=== PATIENT | male | born 1980 ===

== ENCOUNTER 2018-06-05 09:15 | Observation (INO) | payer OTHER ==
--- NOTE | 2018-06-05 10:04 | C.PDOC ---
History Of Present Illness 38 y/o male presents to ED with c/o dizziness since 6am today associated with nausea and vomiting. Patient reports symptoms worse with movement and admits to mild headache. Patient denies fever, chills, chest pain, sob or any other c omplaints at this time. Time Seen by Provider: 06/05/18 09:37 Chief Complaint (Nursing): Dizziness/Lightheaded History Per: Patient History/Exam Limitations: no limitations Onset/Duration Of Symptoms: Days Current Symptoms Are (Timing): Still Present Past Medical History Reviewed: Historical Data, Nursing Documentation, Vital Signs Vital Signs: Last Vital Signs Temp 97.6 F 06/05/18 13:15 Pulse 66 06/05/18 13:15 Resp 18 06/05/18 13:15 BP 98/66 L 06/05/18 13:15 Pulse Ox 98 06/05/18 13:15 - Medical History PMH: No Chronic Diseases Surgical History: No Surg Hx Family History: States: No Known Family Hx - Social History Hx Alcohol Use: No Hx Substance Use: No - Immunization History Hx Tetanus Toxoid Vaccination: No Hx Influenza Vaccination: No Hx Pneumococcal Vaccination: No Review Of Systems Except As Marked, All Systems Reviewed And Found Negative. Gastrointestinal: Positive for: Nausea, Vomiting Neurological: Positive for: Headache, Dizziness Physical Exam - Physical Exam Appears: Non-toxic, No Acute Distress Skin: Warm, Dry, No Rash Head: Atraumatic, Normacephalic Eye(s): bilateral: Normal Inspection (No nystagmus) Oral Mucosa: Moist Neck: Supple Cardiovascular: Rhythm Regular Respiratory: Normal Breath Sounds, No Rales, No Rhonchi, No Wheezing Gastrointestinal/Abdominal: Soft, No Tenderness, No Guarding, No Rebound Neurological/Psych: Oriented x3, Normal Speech, Normal Cognition ED Course And Treatment - Laboratory Results Result Diagrams: 06/05/18 10:32 06/05/18 10:32 O2 Sat by Pulse Oximetry: 100 (RA) Pulse Ox Interpretation: Normal Medical Decision Making Medical Decision Making: Assessment: Vertigo Disposition Discussed With : Teddy Mcclendon Doctor Will See Patient In The: Hospital Counseled Patient/Family Regarding: Studies Performed, Diagnosis - Disposition Disposition: HOSPITALIZED Disposition Time: 15:35 Condition: FAIR Forms: [employer] ([place]ian) - Clinical Impression Clinical Impression: Dizziness - Scribe Statement The provider has reviewed the documentation as recorded by the Scribe Maricsa Zhao All medical record entries made by the Margie were at my direction and personally dictated by me. I have reviewed the chart and agree that the record accurately reflects my personal performance of the history, physical exam, medical decision making, and the department course for this patient. I have also personally directed, reviewed, and agree with the discharge instructions and disposition.
[2018-06-05] MEDS ORDERED: Sodium Chloride 0.9% 1,000 ML IV ONE (10:16)
[2018-06-05 10:35] LABS: BASO % 0.6 % (0.0-2.0); EOS # 0.2 K/uL (0.0-0.7); EOS % 2.5 % (0.0-4.0); HEMOGLOBIN 14.5 g/dL (12.0-18.0); LYMPH # 2.6 K/uL (1.0-4.3); LYMPH % 33.1 % (20.0-40.0); MEAN CELL VOLUME 85.3 fL (80.0-94.0); MEAN CORPUSCULAR HEMOGLOBIN 29.9 pg (27.0-31.0); MEAN PLATELET VOLUME 8.5 fL (7.2-11.7); MONO # 0.5 K/uL (0.0-0.8); MONO % 5.7 % (0.0-10.0); NEUT # 4.6 K/uL (1.8-7.0); NEUT % 58.1 % (50.0-75.0); NRBC % 0.1 % (0.0-2.0); RBC 4.84 Mil/uL (4.40-5.90); RED CELL DISTRIBUTION WIDTH 13.9 % (11.5-14.5)
[2018-06-05] MEDS ORDERED: Sodium Chloride 0.9% 250 ML IV ONE (10:53)
[2018-06-05 10:55] LABS: ALB/GLOB RATIO 1.3 (1.0-2.1); ALBUMIN 4.5 g/dL (3.5-5.0); ALT/SGPT 41 U/L (21-72); AST/SGOT 28 U/L (17-59); BLOOD UREA NITROGEN 16 mg/dL (9-20); CALCIUM 9.8 mg/dl (8.6-10.4); GFR NON-AFRICAN AMERICAN > 60
--- NOTE | 2018-06-05 11:16 | CT ---
Date of service: 06/05/2018 PROCEDURE: CT HEAD WITHOUT CONTRAST. HISTORY: dizziness COMPARISON: None available. TECHNIQUE: Axial computed tomography images were obtained through the head/brain without intravenous contrast. Radiation dose: Total exam DLP = 1207.03 mGy-cm. This CT exam was performed using one or more of the following dose reduction techniques: Automated exposure control, adjustment of the mA and/or kV according to patient size, and/or use of iterative reconstruction technique. FINDINGS: HEMORRHAGE: No intracranial hemorrhage. BRAIN: Normal olivo-white matter differentiation and density are appreciated throughout the cerebrum and cerebellum with the brainstem appearing unremarkable as well. There is no mass effect. There is no suspicious extra-axial fluid collection and the midline brain anatomy appears diffusely unremarkable. VENTRICLES: Unremarkable. No hydrocephalus. CALVARIUM: Unremarkable. PARANASAL SINUSES: Unremarkable as visualized. No significant inflammatory changes. MASTOID AIR CELLS: Unremarkable as visualized. No inflammatory changes. OTHER FINDINGS: None. IMPRESSION: Unremarkable noncontrast head CT. Follow-up CT or MRI are available if clinically warranted.
--- NOTE | 2018-06-05 11:21 | RAD ---
Date of service: 06/05/2018 PROCEDURE: CHEST RADIOGRAPH, 1 VIEW HISTORY: chest pain COMPARISON: None available. FINDINGS: LUNGS: Clear. PLEURA: No pneumothorax or pleural fluid seen. CARDIOVASCULAR: Normal. OSSEOUS STRUCTURES: No significant abnormalities. VISUALIZED UPPER ABDOMEN: Normal. OTHER FINDINGS: None. IMPRESSION: No active disease.
[2018-06-05 15:20] LABS: URINE AMORPHOUS SEDIMENT MODERATE /ul (<OCC); URINE BACTERIA RARE (<OCC); URINE BILIRUBIN NEGATIVE (NEGATIVE); URINE BLOOD NEGATIVE (NEGATIVE); URINE CLARITY Hazy (Clear); URINE COLOR Yellow (YELLOW); URINE GLUCOSE (UA) NORMAL (Normal); URINE LEUKOCYTE ESTERASE NEG Leu/uL (Negative); URINE PROTEIN NEGATIVE (NEGATIVE); URINE UROBILINOGEN NORMAL mg/dL (0.2-1.0)
--- NOTE | 2018-06-06 10:48 | CP.PCM.CON ---
History of Present Illness - History of Present Illness History of Present Illness: Neurology Consult Note: Dr. Mosher's Service 38 year old male with a past medical history of hypercholesterolemia comes into the hospital after reporting dizziness that began yesterday. The patient reports that while sleeping he began to feel the sensation of the room spinning. He woke up from his sleep and the dizziness persisted. The patient went to work with no issue, however while in the restroom the patient began having the s ymptoms again and had to brace himself against the stall. He denies having any episodes in the past. He denies any fevers, chills, recent illness, headaches, changes in vision, or any other complaints. Neurology was consulted for intractable dizziness. PMD:Located at his job. Doesn't recall the name Medical history: Hypercholesterolemia Medications: One for hypercholesterolemia. Unsure of the name. Allergies: Denies Surgical history: Tonsillectomy Social history: Denies illicit drugs. Review of Systems - Constitutional Constitutional: absent: Chills, Frequent Falls, Headache, Night Sweats, Weakness - EENT Eyes: absent: Blurred Vision, Discharge, Loss of Peripheral Vision, Sees Flas hes, Loss of Vision Ears: Dizziness. absent: Ear Discharge, Disequilibrium, Other Nose/Mouth/Throat: absent: Nasal Congestion, Nose Pain, Bleeding Gums, Dysphagia, Mouth Pain, Facial Pain - Cardiovascular Cardiovascular: absent: Chest Pain, Claudication, Irregular Heart Rhythm, Leg Edema, Palpitations, Pedal Edema - Respiratory Respiratory: absent: Hemoptysis, Pain on Inspiration, Change in Mucous Color - Gastrointestinal Gastrointestinal: Vomiting. absent: Belching, Change in Stool Character, Diarrhea, Dyspepsia, Fecal Incontinence, Heartburn, Melena, Nausea - Musculoskeletal Musculoskeletal: absent: Arthralgias, Atrophy, Limited Range of Motion, Myalgias, Tingling - Integumentary Integumentary: absent: Bleeding Lesions, Lesions, Photosensitivity, Striae, Swelling - Neurological Neurological: Vertigo. absent: Focal Weakness, Tremor, Weakness - Psychiatric Psychiatric: absent: Anhedonia, Behavioral Changes - Endocrine Endocrine: absent: Polydipsia, Polyphagia, Polyuria - Hematologic/Lymphatic Hematologic: absent: Easy Bleeding, Easy Bruising Past Patient History - Infectious Disease Hx of Infectious Diseases: None - Past Social History Smoking Status: Never Smoked - PSYCHIATRIC Hx Substance Use: No - ANESTHESIA Hx Anesthesia: No Meds Allergies/Adverse Reactions: Allergies Allergy/AdvReac Type Severity Reaction Status Date / Time No Known Allergies Allergy Verified 06/05/18 09:36 - Medications Medications: Current Medications Meclizine HCl (Antivert) 25 mg PO Q6 MINNIE Last Admin: 06/06/18 05:46 Dose: 25 mg Physical Exam - Head Exam Head Exam: ATRAUMATIC, NORMAL INSPECTION, NORMOCEPHALIC - Eye Exam Eye Exam: EOMI, Normal appearance, PERRL Pupil Exam: NORMAL ACCOMODATION - ENT Exam ENT Exam: Mucous Membranes Moist, Normal Oropharynx. absent: Normal Exam, TM's Normal Bilaterally - Respiratory Exam Respiratory Exam: Clear to Auscultation Bilateral, NORMAL BREATHING PATTERN. absent: Chest Wall Tenderness, Prolonged Expiratory Phase, Respiratory Distress - Cardiovascular Exam Cardiovascular Exam: REGULAR RHYTHM, RRR, +S1, +S2. absent: Rubs - GI/Abdominal Exam GI & Abdominal Exam: Normal Bowel Sounds, Soft. absent: Distended, Hypoactive Bowel Sounds - Back Exam Back exam: NORMAL INSPECTION. absent: CVA tenderness (L), CVA tenderness (R), paraspinal tenderness - Neurological Exam Neurological exam: Alert, CN II-XII Intact, Oriented x3 - Psychiatric Exam Psychiatric exam: Normal Affect, Normal Mood - Skin Skin Exam: Dry, Intact, Normal Color Results - Vital Signs Recent Vital Signs: Last Vital Signs Temp 98.2 F 06/06/18 07:00 Pulse 71 06/06/18 07:00 Resp 20 06/06/18 07:00 BP 100/62 06/06/18 07:00 Pulse Ox 95 06/06/18 07:00 - Labs Result Diagrams: 06/05/18 10:32 06/05/18 10:32 Labs: Laboratory Results - last 24 hr 06/05/18 06/05/18 10:32 15:07 Sodium 141 Potassium 4.2 Chloride 102 Carbon Dioxide 27 Anion Gap 16 BUN 16 Creatinine 0.9 Est GFR ( Amer) > 60 Est GFR (Non-Af Amer) > 60 Random Glucose 126 H Calcium 9.8 Total Bilirubin 0.4 AST 28 ALT 41 Alkaline Phosphatase 82 Troponin I < 0.0120 Total Protein 7.9 Albumin 4.5 Globulin 3.4 Albumin/Globulin Ratio 1.3 Urine Color Yellow Urine Clarity Hazy Urine pH 9.0 Ur Specific [place] 1.020 Urine Protein Negative Urine Glucose (UA) Normal Urine Ketones Negative Urine Blood Negative Urine Nitrate Negative Urine Bilirubin Negative Urine Urobilinogen Normal Ur Leukocyte Esterase Neg Urine RBC (Auto) 1 Amorphous Sediment Moderate H Urine Bacteria Rare Assessment & Plan - Assessment and Plan (Free Text) Assessment: 38 year old male with a past medical history of hyercholesterolemia who was admitted for intractable dizziness. Plan: 1. Dizziness Labrythnitits vs. BPPV vs. Vertigo Head CT: :Unremarkable head CT -Antivert 25mg PO Q6 -Valium 4mg PO Q12 Brain MRI ordered .Will f/u with results. Dispo: Will continue to monitor and await results of brain MRI. Plan discussed with Dr. Mosher. Lonnie Mosley, PGY-2
[2018-06-06] MEDS ORDERED: Pneumococcal 23-Valent Vaccine IM ONE (11:04)
--- NOTE | 2018-06-06 11:39 | CARD ---
APPROVED REPORT Date of service: 06/05/2018 EKG Measurement Heart [id number] <Conclusion> Normal sinus rhythm Normal ECG
--- NOTE | 2018-06-06 22:36 | CP.PCM.HP ---
Past Patient History - Infectious Disease Hx of Infectious Diseases: None - Past Social History Smoking Status: Never Smoked - PSYCHIATRIC Hx Substance Use: No - ANESTHESIA Hx Anesthesia: No Meds Allergies/Adverse Reactions: Allergies Allergy/AdvReac Type Severity Reaction Status Date / Time No Known Allergies Allergy Verified 06/05/18 09:36 Results - Vital Signs Recent Vital Signs: Last Vital Signs Temp 98.2 F 06/06/18 15:51 Pulse 61 06/06/18 15:51 Resp 18 06/06/18 15:51 BP 104/63 06/06/18 15:51 Pulse Ox 95 06/06/18 20:00 - Labs Result Diagrams: 06/05/18 10:32 06/05/18 10:32
[2018-06-07 02:25] VITALS: TEMP 97.6
[2018-06-07 07:59] VITALS: BP 99/56; PULSE 65; RESP 18
--- NOTE | 2018-06-07 09:19 | HP ---
CHIEF COMPLAINT: Intractable dizziness. HISTORY OF PRESENT ILLNESS: This is a 38-year-old male, who is obese with history of hyperlipidemia. He came to the emergency room because of persistent dizziness that started a day prior to the admission. According to the patient, while he was sleeping, he felt sensation of room spinning. He woke up from his sleep and his dizziness persisted despite his movement. He hoped that when he will move the dizziness will go away, but it did not go away. He went to work with no problems and while he was in the restroom, he developed symptoms again and he felt like he is about to fall. He came to the emergency room. He denies any chest pain, palpitation, or weakness. He denies any history of polyuria, polydipsia, polyphagia. He denies any history of fever, chills, rigors. He denies any history of diarrhea. He denies any history of tinnitus, deafness. He denies any history of URI. He denies any gait problem. PAST MEDICAL HISTORY: Hyperlipidemia. SOCIAL HISTORY: Denies smoking, drinking. No history of substance abuse. PAST SURGICAL HISTORY: Tonsillectomy. CURRENT MEDICATIONS: None. ALLERGIES: UNKNOWN. PHYSICAL EXAMINATION GENERAL: A young man, in no acute distress. SKIN: No rashes. No bruises. No purpura. No petechiae. VITAL SIGNS: BP 100/62, pulse 71, respiratory rate 20, temperature 98.2, saturations 95%. HEENT: Atraumatic and normocephalic. Negative pallor. Negative jaundice. Extraocular movements are intact. NECK: Supple. No JVD. No lymph node. No carotid bruit. CHEST: Chest wall bilateral symmetrical expansion. LUNGS: Bilaterally clear. No rales. No rhonchi. CVS: S1 and S2, regular. No heave. No thrill. ABDOMEN: Soft and nontender. Bowel sounds are positive. No bruits. RECTAL: No masses. No bleed. EXTREMITIES: No clubbing, cyanosis or edema. BUSINESS PARTNER: Awake, alert, and oriented x3. ASSESSMENT: 1. Intractable vertigo. 2. Hyperlipidemia. PLAN: Admit. Neuro check. . Teddy Mcclendon MD [facility] # [id number]
--- NOTE | 2018-06-07 10:06 | MRI ---
Date of service: 06/07/2018 PROCEDURE: MRI BRAIN WITH AND WITHOUT CONTRAST HISTORY: intractible dizziness COMPARISON: None available. TECHNIQUE: Multiplanar, multisequence MR images of the brain were obtained with and without intravenous contrast enhancement. FINDINGS: HEMORRHAGE: No acute parenchymal, subarachnoid or extra-axial hemorrhage. No evidence of hemosiderin deposition seen on gradient echo weighted sequence. DWI: No evidence of an acute or early subacute infarction identified on diffusion imaging.. BRAIN PARENCHYMA: There is a small semi lunar shaped focus of increased T2 signal left perifrontal horn white matter which demonstrates no contrast enhancement and is nonspecific. Differential diagnosis would include sequela of small vessel disease, old trauma, migraine headache or post infectious inflammatory etiology. Atypical presentation of a demyelinating disease process would be less likely in the absence of a pertinent clinical history however clinical correlation recommended. Minimal of prolonged T2 signal changes in the right para frontal horn white matter present of both some of these changes likely related to FLAIR related CSF interface artifact though some concomitant component gliosis cannot be completely excluded. ENHANCEMENT: There are no enhancing parenchymal nor extra-axial masses or collections. No evidence of unusual meningeal enhancement. VENTRICLES: No obstructive hydrocephalus. CRANIUM: Unremarkable. ORBITS: Orbits and contents unremarkable. PARANASAL SINUSES/MASTOIDS: Some very minor mucosal thickening noted within a few ethmoid air cells, possibly within the inferior margin right chamber of diminutive sphenoid sinus and left maxillary antrum. There also appears to be some residual secretion in the posterior superior nasopharynx.. VASCULAR SYSTEM: The visualized major vascular flow voids at skull base are patent. OTHER FINDINGS: None . IMPRESSION: No evidence of acute intracranial hemorrhage or infarct. Small non specific nonenhancing somewhat semi lunar shaped focus of increased T2 signal seen in the leftperifrontal white matter uncertain etiology. See above discussion for differential diagnostic considerations. No enhancing lesions.
[2018-06-07 11:30] VITALS: O2SAT 99
[2018-06-07] MEDS ORDERED: Pneumococcal 23-Valent Vaccine IM ONE (12:00)
--- NOTE | 2018-06-07 13:09 | CP.PCM.PN ---
Subjective - Date & Time of Evaluation Date of Evaluation: 06/07/18 Time of Evaluation: 13:09 - Subjective Subjective: PT SEEN BY DR. DE JESUS; MRI REVIEWED WITH DR. DE JESUS AND CLEARED FOR D./C FROM NEURO STANDPOINT. OK PER DR. SAMPSON TO D/C HOME TODAY. RX GIVEN FOR MECLIZINE PRN. PT TO F/U WITH HIS PMD IN [place] WITHIN 1 WEEK. REVIEWED ALL TESTS RESULTS WI TH PT AND ALL CONCERNS ADDRESSED. NO FURTHER ORDERS. -FOLLOW UP WITH DR. SAMPSON OR YOUR PRIMARY DOCTOR IN THE OFFICE WITHIN 1 WEEK---CALL THE OFFICE TO MAKE AN APPOINTMENT. -FOLLOW UP WITH DR. DE JESUS (NEUROLOGY) IN THE OFFICE WITHIN 1-2 WEEKS---CALL THE OFFICE TO MAKE AN APPOINTMENT. -CONTINUE HOME MEDICATIONS USUAL. -YOU HAVE BEEN PRESCRIBED ANTIVERT ---TAKE 1 TABLET BY MOUTH EVERY 8 HOURS ONLY NEEDED FOR DIZZINESS. IF YOU FEEL FINE, DO NOT TAKE THE MEDICATION. -FOR FURTHER CONCERNS OR QUESTIONS, CONTACT DR. SAMPSON'S OFFICE. Objective - Vital Signs/Intake and Output Vital Signs (last 24 hours): Temp Pulse Resp BP Pulse Ox 97.6 F 65 18 99/56 L 99 06/07/18 07:03 06/07/18 07:03 06/07/18 07:03 06/07/18 07:03 06/07/18 11:28 Intake and Output: 06/07/18 06/07/18 06:59 18:59 Intake Total 250 Output Total 1100 Balance -850 - Medications Medications: Current Medications Meclizine HCl (Antivert) 25 mg PO Q6 MINNIE Last Admin: 06/07/18 11:14 Dose: 25 mg - Labs Labs: 06/05/18 10:32 06/05/18 10:32
--- NOTE | 2018-06-07 13:30 | CP.PCM.PN ---
Subjective - Date & Time of Evaluation Date of Evaluation: 06/07/18 Time of Evaluation: 13:30 - Subjective Subjective: Patient has no more spells of dizziness, and is well this morning. MRI brain is normal with no stroke, no lesions. On exam: Normal neurological examination Objective - Vital Signs/Intake and Output Vital Signs (last 24 hours): Temp Pulse Resp BP Pulse Ox 97.6 F 65 18 99/56 L 99 06/07/18 07:03 06/07/18 07:03 06/07/18 07:03 06/07/18 07:03 06/07/18 11:28 Intake and Output: 06/07/18 06/07/18 06:59 18:59 Intake Total 250 Output Total 1100 Balance -850 - Medications Medications: Current Medications Meclizine HCl (Antivert) 25 mg PO Q6 MINNIE Last Admin: 06/07/18 11:14 Dose: 25 mg - Labs Labs: 06/05/18 10:32 06/05/18 10:32 Assessment and Plan - Assessment and Plan (Free Text) Assessment: 38 yr old male with dizziness that is most likely labyrinthitis, not stroke. He would benefit from outpatient ENT evaluation and VNG. No further neurological intervention needed. Thank you Dr. segovia [facility]
--- NOTE | 2018-06-07 23:52 | CP.PCM.DIS ---
Provider - Provider Date of Admission: 06/05/18 15:33 Attending physician: Teddy Mcclendon MD Hospital Course - Lab Results Lab Results: Most Recent Lab Values WBC 8.0 K/uL (4.8-10.8) 06/05/18 10:32 RBC 4.84 Mil/uL (4.40-5.90) 06/05/18 10:32 Hgb 14.5 g/dL (12.0-18.0) 06/05/18 10:32 Hct 41.3 % (35.0-51.0) 06/05/18 10:32 MCV 85.3 fL (80.0-94.0) 06/05/18 10:32 MCH 29.9 pg (27.0-31.0) 06/05/18 10:32 MCHC 35.0 g/dL (33.0-37.0) 06/05/18 10:32 RDW 13.9 % (11.5-14.5) 06/05/18 10:32 Plt Count 271 K/uL (130-400) 06/05/18 10:32 MPV 8.5 fL (7.2-11.7) 06/05/18 10:32 Neut % (Auto) 58.1 % (50.0-75.0) 06/05/18 10:32 Lymph % (Auto) 33.1 % (20.0-40.0) 06/05/18 10:32 George % (Auto) 5.7 % (0.0-10.0) 06/05/18 10:32 Eos % (Auto) 2.5 % (0.0-4.0) 06/05/18 10:32 Baso % (Auto) 0.6 % (0.0-2.0) 06/05/18 10:32 Neut # (Auto) 4.6 K/uL (1.8-7.0) 06/05/18 10:32 Lymph # (Auto) 2.6 K/uL (1.0-4.3) 06/05/18 10:32 George # (Auto) 0.5 K/uL (0.0-0.8) 06/05/18 10:32 Eos # (Auto) 0.2 K/uL (0.0-0.7) 06/05/18 10:32 Baso # (Auto) 0.0 K/uL (0.0-0.2) 06/05/18 10:32 Sodium 141 mmol/L (132-148) 06/05/18 10:32 Potassium 4.2 mmol/L (3.6-5.2) 06/05/18 10:32 Chloride 102 mmol/L (98-107) 06/05/18 10:32 Carbon Dioxide 27 mmol/L (22-30) 06/05/18 10:32 Anion Gap 16 (10-20) 06/05/18 10:32 BUN 16 mg/dL (9-20) 06/05/18 10:32 Creatinine 0.9 mg/dL (0.8-1.5) 06/05/18 10:32 Est GFR ( Amer) > 60 06/05/18 10:32 Est GFR (Non-Af Amer) > 60 06/05/18 10:32 Random Glucose 126 mg/dL (75-110) H 06/05/18 10:32 Calcium 9.8 mg/dl (8.6-10.4) 06/05/18 10:32 Total Bilirubin 0.4 mg/dL (0.2-1.3) 06/05/18 10:32 AST 28 U/L (17-59) 06/05/18 10:32 ALT 41 U/L (21-72) 06/05/18 10:32 Alkaline Phosphatase 82 U/L (38-126) 06/05/18 10:32 Troponin I < 0.0120 ng/mL (0.00-0.120) 06/05/18 10:32 Total Protein 7.9 g/dL (6.3-8.3) 06/05/18 10:32 Albumin 4.5 g/dL (3.5-5.0) 06/05/18 10:32 Globulin 3.4 gm/dL (2.2-3.9) 06/05/18 10:32 Albumin/Globulin Ratio 1.3 (1.0-2.1) 06/05/18 10:32 Urine Color Yellow (YELLOW) 06/05/18 15:07 Urine Clarity Hazy (Clear) 06/05/18 15:07 Urine pH 9.0 (5.0-8.0) 06/05/18 15:07 Ur Specific [place] 1.020 (1.003-1.030) 06/05/18 15:07 Urine Protein Negative mg/dL (NEGATIVE) 06/05/18 15:07 Urine Glucose (UA) Normal mg/dL (Normal) 06/05/18 15:07 Urine Ketones Negative mg/dL (NEGATIVE) 06/05/18 15:07 Urine Blood Negative (NEGATIVE) 06/05/18 15:07 Urine Nitrate Negative (NEGATIVE) 06/05/18 15:07 Urine Bilirubin Negative (NEGATIVE) 06/05/18 15:07 Urine Urobilinogen Normal mg/dL (0.2-1.0) 06/05/18 15:07 Ur Leukocyte Esterase Neg Javier/uL (Negative) 06/05/18 15:07 Urine RBC (Auto) 1 /hpf (0-3) 06/05/18 15:07 Amorphous Sediment Moderate /ul (<OCC) H 06/05/18 15:07 Urine Bacteria Rare (<OCC) 06/05/18 15:07 Discharge Exam - Head Exam Head Exam: ATRAUMATIC, NORMAL INSPECTION, NORMOCEPHALIC Discharge Plan - Discharge Medications Prescriptions: Meclizine [Meclizine*] 25 mg PO Q8 PRN #14 tab PRN Reason: Dizziness - Follow Up Plan Condition: FAIR Disposition: HOME/ ROUTINE Instructions: Dizziness, Nonvertigo, (DC) Additional Instructions: -FOLLOW UP WITH DR. MCCLENDON OR YOUR PRIMARY DOCTOR IN THE OFFICE WITHIN 1 WEEK---CALL THE OFFICE TO MAKE AN APPOINTMENT. -FOLLOW UP WITH DR. DE JESUS (NEUROLOGY) IN THE OFFICE WITHIN 1-2 WEEKS---CALL THE OFFICE TO MAKE AN APPOINTMENT. -CONTINUE HOME MEDICATIONS USUAL. -YOU HAVE BEEN PRESCRIBED ANTIVERT ---TAKE 1 TABLET BY MOUTH EVERY 8 HOURS ONLY NEEDED FOR DIZZINESS. IF YOU FEEL FINE, DO NOT TAKE THE MEDICATION. -FOR FURTHER CONCERNS OR QUESTIONS, CONTACT DR. MCCLENDON'S OFFICE. Referrals: Teddy Mcclendon MD [Staff Provider] - Garrett De Jesus MD [Staff Provider] -
== END 2018-06-07 14:55 | disposition home or self-care (01) ==
LOC: C.ER 09:15 → C.9E 15:33 → C.6T 20:59
PROVIDERS: ADMIT Internal Medicine; ATTEND Internal Medicine
DX: R42 Dizziness and giddiness (principal); E78.5 Hyperlipidemia, unspecified
CPT/HCPCS: 70450; 70552; 71045; 80053; 81001; 84484; 85025; 93005; 96360; 96374; 99285; G0378; J2405; J7030